=== PATIENT | male | born 1960 | race Two or more races ===

== ENCOUNTER → 2021-10-07 16:04 | Outpatient (CLI) | payer OTHER, SELFPAY ==
--- NOTE | ~2021-10-07 | XR_ITS ---
EXAMINATION: XR lumbar spine 2-3V DATE: 10/07/2021 16:43 INDICATION: Low back pain TECHNIQUE: Anteroposterior and lateral views of the lumbar spine, and cone-down lateral view of the l umbosacral junction were obtained. COMPARISON: None. FINDINGS: There are 2 mm of retrolisthesis of L3 on L4. Vertebral body heights are maintained. There is moderate loss of intervertebral disc space height at L3-4 and L5-S1. Small degenerative oste ophytes project from the anterior endplates of multiple vertebral bodies. There is no fracture. Moder ate facet osteoarthritis is noted in the lower lumbar spine. A large volume of colonic stool is prese nt. IMPRESSION: 1. Mild to moderate lumbar spondylosis without acute findings. Reviewed, dictated and finalized at location F.
--- NOTE | ~2021-10-07 | XR_ITS ---
EXAMINATION: XR hip RT min 2V DATE: 10/07/2021 16:43 INDICATION: Right hip pain TECHNIQUE: Two views of right hip were obtained. COMPARISON: None. FINDINGS: Bone alignment is normal. There is no fracture. Phleboliths are noted in the right pelvis. The soft tissues are otherwise unremarkable. IMPRESSION: 1. No acute osseous abnormality. Reviewed, dictated and finalized at location F.
== END ==
PROVIDERS: PCP Family Medicine; Visit Provider Family Medicine
DX: M54.41 Lumbago with sciatica, right side (principal); M47.816 Spondylosis without myelopathy or radiculopathy, lumbar region
CPT/HCPCS: 72100; 73502

== ENCOUNTER 2024-07-21 08:45 | Outpatient (CLI) | payer OTHER, SELFPAY ==
--- NOTE | ~2024-07-21 | XR_ITS ---
Lumbosacral Spine: AP and lateral views Clinical History: Pain Findings: The normal lordotic curve is maintained. No fracture or subluxation. There is moderate to a dvanced degenerative disc change throughout the lumbar spine, worst at L3-L4. There is moderate facet arthropathy. The sacroiliac joints are normally outlined. Impression: Moderate degenerative spondylosis overall. Reviewed, dictated and finalized at location . Impression: Moderate degenerative spondylosis overall.
--- NOTE | ~2024-07-21 | XR_ITS ---
AP and lateral views of the right hip Clinical history: Pain Findings: No acute fracture or dislocation is seen. Osseous alignment is anatomic. Right hip joint is intact. Soft tissues are unremarkable. Impression: No significant abnormality is seen. Reviewed, dictated and finalized at location M. Impression: No significant abnormality is seen.
== END 2024-07-21 08:46 | disposition home or self-care (01) ==
LOC: MICIMG 08:49
PROVIDERS: PCP Family Medicine; Visit Provider Family Medicine
DX: M47.816 Spondylosis without myelopathy or radiculopathy, lumbar region (principal); M25.551 Pain in right hip
CPT/HCPCS: 72100; 73502